=== PATIENT | female | born 1980 | race Caucasian/White ===

== ENCOUNTER 2021-02-15 02:32 | Emergency (ER) | payer OTHER ==
[~2021-02-15] VITALS: Ht 170.2 cm; Wt 104.3 kg
[2021-02-15 02:47] VITALS: BP 149/89
--- NOTE | 2021-02-15 03:53 | NUR ---
PT AMBULATED TO ER BED 01
--- NOTE | 2021-02-15 04:21 | NUR ---
40 yo f bib self with painful bump on chin 07/01. pt states she noticed the bum on monday, squeezed it and ever day since it has gotten worse. chin is hard and warm to touch. redness is around chin and goes down to neck and chest, also warm to touch. pt states she went to urgent care last night and was given doxycycline. pt took ibuprofen and states it helped relieve pain completely. lmp:01/31 denies hx rx and allerg
[2021-02-15] MEDS ORDERED: AMPICILLIN/SULBACTAM 3 GM in NACL 0.9% 100 ML IV ONE (05:05)
[2021-02-15] MEDS ORDERED: ONDANSETRON 4 MG/2 ML VIAL IVP ONE (05:05)
[2021-02-15] MEDS ORDERED: NACL 0.9% 1,000 ML IV ONE (05:05)
[2021-02-15] MEDS ORDERED: MORPHINE SULFATE 4 MG/ML SYR IVP ONE (05:05)
--- NOTE | 2021-02-15 05:20 | NUR ---
labs collectd and sent to lab.
[2021-02-15] MEDS ORDERED: AMPICILLIN/SULBACTAM 3 GM VIAL ONE (05:25)
[2021-02-15 05:42] LABS: BASOPHILS % (AUTO) 0.4 % (0.0-2.0); EOSINOPHILS # (AUTO) 0.2 K/uL (0-0.4); EOSINOPHILS % (AUTO) 2.2 % (0.0-4.0); HEMATOCRIT 41.3 % (36-48); LYMPHOCYTES # (AUTO) 1.1 K/uL (2.5-16.5); LYMPHOCYTES % (AUTO) 13.1 % (20.5-51.1); MEAN CORPUSCULAR HEMOGLOBIN 30 pg (27-31); MEAN CORPUSCULAR HGB CONC 34 g/dL (33-37); MEAN CORPUSCULAR VOLUME 87.7 fL (80-94); MONOCYTES # (AUTO) 0.5 K/uL (0.8-1.0); MONOCYTES % (AUTO) 6.1 % (1.7-9.3); NEUTROPHILS # (AUTO) 6.8 K/uL (1.8-7.7); NEUTROPHILS % (AUTO) 78.2 % (42.2-75.2); PLATELET COUNT (AUTO) 214 K/uL (140-450); RED BLOOD CELL COUNT(AUTO) 4.71 MIL/uL (4.20-5.40); RED CELL DISTRIBUTION WIDTH 14.1 % (11.6-13.7); WHITE BLOOD COUNT (AUTO) 8.8 K/uL (4.8-10.8)
[2021-02-15 06:01] LABS: ALBUMIN 3.7 g/dL (3.4-5.0); CREATININE 0.8 mg/dL (0.6-1.3); TOTAL BILIRUBIN 0.5 mg/dL (0.0-1.0)
[2021-02-15] MEDS ORDERED: POTASSIUM CHL 20MEQ/D5-NS 1,000 ML IV ONE (07:15)
--- NOTE | 2021-02-15 07:18 | NUR ---
report given to demarcus kam. transfer of care at this time.
--- NOTE | 2021-02-15 07:30 | NUR ---
PT C/O CELLULITIS TO CHIN EXTENDING TO NECK WITH REDNESS. AREA HOT TO TOUCH AND PAINFUL. PT ADMITTED FOR IV ANTIBIOTICS. IV TO LEFT AC #20GUAGE INFUSING FLUIDS PER ORDER. TOLERATING WELL. NSR ON MONITOR. NO ACUTE DISTRESS NOTED. SAFETY MAINTAINED.
--- NOTE | 2021-02-15 09:29 | NUR ---
report given to janna tracy at [facility] for continuation of care
--- NOTE | 2021-02-15 09:39 | NUR ---
amr here at bedside repoirt given to medic at bedside. pt stable on tx.
[2021-02-15 09:43] VITALS: BP 127/80
== END 2021-02-15 09:43 | disposition short-term general hospital (02) ==
LOC: MED 02:32
DX: K12.2 Cellulitis and abscess of mouth (principal)
CPT/HCPCS: 36415; 70491; 80053; 84703; 85025; 87040; 87426; 96361; 96365; 96375; 99291; 99292; J0295; J2270; J2405; J7030; Q9967

== ENCOUNTER 2021-04-08 14:40 | Observation (INO) | payer OTHER, SELFPAY ==
[~2021-04-08] VITALS: Ht 170.2 cm; Wt 102.5 kg
[2021-04-08 15:16] VITALS: BP 156/90
--- NOTE | 2021-04-08 15:27 | NUR ---
pt ambulated to bed 08, urine cup at bedside
--- NOTE | 2021-04-08 16:04 | NUR ---
DR JARVIS AT BEDSIDE EVALUATING PT
--- NOTE | 2021-04-08 16:10 | NUR ---
40 Y/O FEMALE C/O RLQ ABDOMINAL PAIN THAT RADIATES TO ENTIRE STOMACH AND BACK XYESTERDAY. PT ALSO C/O DIARRHEA AND A LOT OF GAS X2 DAYS WITH LBM YESTERDAY. PT DENIES BLOOD IN STOOL. ABD IS FLAT, SOFT. AND TENDER ON PALPATION. PT DENIES TAKING ANYTHING FOR PAIN. DENIES DYSURIA/HEMATURIA. PT RATES PAIN 9/10 THAT SHE DESCRIBES STABBING/SHOOTING. PT REPORTS PAIN IS WORSE WITH ANY TYPE OF MOVEMENT. PT A/O X4 WITH EVEN AND UNLABORED RESPIRATIONS. PT PLACED IN GOWN. PMH:DENIES NKDA
--- NOTE | 2021-04-08 16:11 | NUR ---
LAB AT BEDSIDE
[2021-04-08] MEDS ORDERED: NACL 0.9% 1,000 ML IV ONE (16:15)
[2021-04-08] MEDS ORDERED: MORPHINE SULFATE 4 MG/ML SYR IVP ONE ×2 (16:15→19:05)
[2021-04-08] MEDS ORDERED: ONDANSETRON 4 MG/2 ML VIAL IVP ONE (16:15)
[2021-04-08 16:26] LABS: BASOPHILS % (AUTO) 0.5 % (0.0-2.0); EOSINOPHILS # (AUTO) 0.2 K/uL (0-0.4); EOSINOPHILS % (AUTO) 1.7 % (0.0-4.0); HEMATOCRIT 41.8 % (36-48); HEMOGLOBIN 14.2 g/dL (12.0-16.0); LYMPHOCYTES # (AUTO) 0.9 K/uL (2.5-16.5); LYMPHOCYTES % (AUTO) 9.9 % (20.5-51.1); MEAN CORPUSCULAR HEMOGLOBIN 29 pg (27-31); MEAN CORPUSCULAR HGB CONC 34 g/dL (33-37); MEAN CORPUSCULAR VOLUME 84.9 fL (80-94); MONOCYTES # (AUTO) 0.7 K/uL (0.8-1.0); NEUTROPHILS # (AUTO) 7.7 K/uL (1.8-7.7); NEUTROPHILS % (AUTO) 80.9 % (42.2-75.2); PLATELET COUNT (AUTO) 244 K/uL (140-450); RED BLOOD CELL COUNT(AUTO) 4.92 MIL/uL (4.20-5.40); RED CELL DISTRIBUTION WIDTH 14.4 % (11.6-13.7); WHITE BLOOD COUNT (AUTO) 9.5 K/uL (4.8-10.8)
--- NOTE | 2021-04-08 17:14 | NUR ---
Infiltration noted to L AC IV. Pt with pain and swelling to left upper arm. IV discontinued at this time.
[2021-04-08 18:02] LABS: APPEARANCE,URINE CLEAR (CLEAR); BILIRUBIN,URINE NEGATIVE (NEGATIVE); BLOOD, URINE NEGATIVE (NEGATIVE); COLOR,URINE YELLOW (YELLOW); LEUKOCYTE ESTERASE ,URINE NEGATIVE (NEGATIVE); NITRITE, URINE NEGATIVE (NEGATIVE); UGLUCOSE NEGATIVE (NEGATIVE)
[2021-04-08 18:20] LABS: ALBUMIN 3.4 g/dL (3.4-5.0); CREATININE 0.8 mg/dL (0.6-1.3); TOTAL BILIRUBIN 0.8 mg/dL (0.0-1.0)
--- NOTE | 2021-04-08 18:40 | NUR ---
PT TAKEN TO CT VIA W/C
--- NOTE | 2021-04-08 18:53 | NUR ---
Duong kasper in [facility] - 04/08/21 at 1858 by [email or web address] PT BACK FROM CT
--- NOTE | 2021-04-08 18:55 | NUR ---
PT BACK FROM CT. PT IS C/O 12/01 ABDOMINAL PAIN AND REQUESTING PAIN MEDICATION. DR JARVIS MADE AWARE
--- NOTE | 2021-04-08 19:34 | NUR ---
RETURN CALL FROM MILKER MACHINE Serge BERNAL RN. TOLD DR. TINAJERO HAS SURGERY SCHEDULED FOR PATIENT AT 2030
[2021-04-08] MEDS ORDERED: LACTATED RINGERS 1,000 ML IV SCH (19:45)
[2021-04-08] MEDS ORDERED: ONDANSETRON 4 MG/2 ML VIAL IVP PRN ×2 (19:45→20:35)
[2021-04-08] MEDS ORDERED: HYDROcodone/APAP 5/325 MG 1 TAB TAB PO PRN (19:45)
--- NOTE | 2021-04-08 20:29 | NUR ---
DR. TINAJERO AT [facility]
[2021-04-08] MEDS ORDERED: BUPIVACAINE-MPF/EPI 0.25% 30 ML VIAL INJ ONE (20:30)
[2021-04-08] MEDS ORDERED: MIDAZOLAM 2 MG/2 ML VIAL ONE (20:35)
[2021-04-08] MEDS ORDERED: HYDROmorphone 1 MG/ML AMP IVP PRN (20:35)
[2021-04-08] MEDS ORDERED: MEPERIDINE 25 MG/ML SYR IVP PRN (20:35)
[2021-04-08] MEDS: LACTATED RINGERS 1,000 ML IV SCH (20:35)
[2021-04-08] MEDS ORDERED: diphenhydrAMINE 50 MG/ML VIAL IVP PRN (20:35)
[2021-04-08] MEDS ORDERED: PROPOFOL 200 MG/20 ML VIAL IV ONE (20:35)
[2021-04-08] MEDS ORDERED: SUCCINYLCHOLINE CHLORIDE 200 MG/10 ML VIAL IVP ONE (20:35)
[2021-04-08] MEDS ORDERED: fentaNYL citrate 0.05 MG/ML VIAL ONE (20:35)
--- NOTE | 2021-04-08 20:48 | NUR ---
OR TEAM AT BEDSIDE
--- NOTE | 2021-04-08 20:51 | NUR ---
PT TAKEN BY OR TEAM FOR SURGERY. PT WILL GO TO 106B AFTER PROCEDURE
[2021-04-08] MEDS ORDERED: PIPERACILLIN/TAZOBACTAM 3.375 GM VIAL IV ONE (20:55)
--- NOTE | 2021-04-08 20:58 | NUR ---
PT TAKEN TO SURGERY VIA GURNEY WITH THE SURGICAL TEAM. PT WILL GO TO BED 106B AFTER SURGERY
[2021-04-08] MEDS: PIPERACILLIN/TAZOBACTAM 3.375 GM in DEXTROSE 5% 50 ML IV SCH (21:00)
[2021-04-08] MEDS ORDERED: SEVOFLURANE 250 ML BTL INH ONE (21:35)
[2021-04-08] MEDS ORDERED: ROCURONIUM 50 MG/5 ML VIAL IV ONE (21:46)
[2021-04-08] MEDS ORDERED: DEXAMETHASONE 4 MG/ML VIAL ONE (22:07)
[2021-04-08] MEDS ORDERED: ONDANSETRON 4 MG/2 ML VIAL ONE (22:07)
[2021-04-08] MEDS ORDERED: LABETALOL 100 MG/20 ML VIAL ONE (22:11)
[2021-04-08] MEDS ORDERED: SUGAMMADEX SODIUM 200 MG/2 ML VIAL IV ONE (22:17)
[2021-04-08] MEDS ORDERED: MEPERIDINE 50 MG/ML SYR ONE (22:20)
[2021-04-09] VITALS: BP 135/79
--- NOTE | 2021-04-09 | NUR ---
ADMITTED FROM OR FOR S/P LAPAROSCOPIC APPENDECTOMY WITH CHIEF COMPLAINT OF RLQ ABDOMINAL PAIN THAT STARTED ON 04/07/21 APPROXIMATELY 1430. PATIENT IS CURRENTLY ASLEEP. INFORMATION IS PROVIDED BY MOTHER AT BEDSIDE. VITAL SIGNS TAKEN AND WITHIN NORMAL LIMITS. CHEST IS RISING AND FALLING. RESPIRATIONS EVEN AND UNLABORED. NO APPARENT S/SX OF ACUTE DISTRESS. HEAD TO TOE ASSESSMENT COMPLETED WITH CHARGE NURSE DESIRE. ADMISSION HISTORY PROVIDED BY MOTHER. WILL VERIFY INFORMATION WITH PATIENT WHEN SHE WAKES UP. PICTURES TAKEN FOR SURGICAL WOUND SITES AND DOCUMENTED. EDUCATED MOTHER PROMOTIONS EXECUTIVE PRODUCER LIGHT, BED CONTROLS, TELEVISION, BATHROOM, VISITING HOURS. ID BRACELET IS ON. BELONGINGS ON BEDSIDE. MOTHER STATED THAT SHE WILL BE LEAVING SHORTLY. WHITE COMMUNICATION BOARD UPDATED. ALL SAFETY MEASURES IN PLACE. CALL LIGHT WITHIN REACH. WILL CONTINUE TO MONITOR.
[2021-04-09] MEDS: MORPHINE SULFATE 4 MG/ML SYR IVP PRN ×4 (00:14→21:37)
--- NOTE | 2021-04-09 00:15 | NUR ---
PATIENT WOKE UP AND C/O 8/10 PAIN ON LOWER ABDOMEN. WILL ENDORSE TO RN DESIRE FOR PRN IVP.
--- NOTE | 2021-04-09 00:30 | NUR ---
PATIENT REQUESTED FOR SOMETHING TO EAT. WILL RETURN WITH REQUESTED ITEMS.
--- NOTE | 2021-04-09 01:00 | NUR ---
Patient's Plan of Care was discussed and reviewed with TRADE SHOW MANAGER: ADWOA OLIVER
--- NOTE | 2021-04-09 02:30 | NUR ---
CHECKED PATIENT. STABLE AND ASLEEP. CHEST IS RISING AND FALLING SYMMETRICALLY. RESPIRATIONS EVEN AND UNLABORED. NO APPARENT S/SX OF ACUTE DISTRESS. WHITE COMMUNICATION BOARD UPDATED. ALL SAFETY MEASURES IN PLACE. CALL LIGHT WITHIN REACH. WILL CONTINUE TO MONITOR.
[2021-04-09 04:00] VITALS: BP 129/81
[2021-04-09] MEDS: LACTATED RINGERS 1,000 ML IV SCH ×3 (04:17→21:46)
--- NOTE | 2021-04-09 04:30 | NUR ---
ROUNDED ON PATIENT. STABLE AND ASLEEP. CHEST IS RISING AND FALLING SYMMETRICALLY. RESPIRATIONS EVEN AND UNLABORED. NO APPARENT S/SX OF ACUTE DISTRESS. WHITE COMMUNICATION BOARD UPDATED. ALL SAFETY MEASURES IN PLACE. CALL LIGHT WITHIN REACH. WILL CONTINUE TO MONITOR.
[2021-04-09] MEDS ORDERED: PIPERACILLIN/TAZOBACTAM 3.375 GM VIAL IV ONE (04:56)
[2021-04-09] MEDS: PIPERACILLIN/TAZOBACTAM 3.375 GM in DEXTROSE 5% 50 ML IV SCH ×3 (05:04→21:37)
--- NOTE | 2021-04-09 05:45 | NUR ---
PATIENT HAS NOT VOIDED SINCE OR PROCEDURE. BLADDER SCAN SHOWS URINE OF 400ML. WILL RECHECK IN 30 MINS. PATIENT IS ALSO C/O 8/10 LOWER ABDOMINAL PAIN. WILL ENDORSE TO RN DESIRE REGARDING PRN MORPHINE SULFATE PER MD ORDER.
--- NOTE | 2021-04-09 06:10 | NUR ---
ASSISTED PATIENT TO THE BATHROOM. PATIENT REPORTED SHE WAS ABLE TO VOID.
[2021-04-09 06:55] LABS: BASOPHILS % (AUTO) 0.1 % (0.0-2.0); HEMATOCRIT 38.3 % (36-48); HEMOGLOBIN 13.1 g/dL (12.0-16.0); LYMPHOCYTES # (AUTO) 0.3 K/uL (2.5-16.5); LYMPHOCYTES % (AUTO) 4.4 % (20.5-51.1); MEAN CORPUSCULAR HEMOGLOBIN 29 pg (27-31); MEAN CORPUSCULAR HGB CONC 34 g/dL (33-37); MEAN CORPUSCULAR VOLUME 85.3 fL (80-94); MONOCYTES # (AUTO) 0.1 K/uL (0.8-1.0); MONOCYTES % (AUTO) 1.5 % (1.7-9.3); NEUTROPHILS # (AUTO) 6.7 K/uL (1.8-7.7); PLATELET COUNT (AUTO) 207 K/uL (140-450); RED BLOOD CELL COUNT(AUTO) 4.49 MIL/uL (4.20-5.40); RED CELL DISTRIBUTION WIDTH 14.4 % (11.6-13.7); WHITE BLOOD COUNT (AUTO) 7.1 K/uL (4.8-10.8)
[2021-04-09 07:01] LABS: CARBON DIOXIDE 25.4 mmol/L (21-32); CREATININE 0.8 mg/dL (0.6-1.3); POTASSIUM 4.4 mmol/L (3.5-5.1)
--- NOTE | 2021-04-09 07:26 | NUR ---
ENDORSED PATIENT TO MORNING SHIFT NURSE FOR CONTINUITY OF CARE. PATIENT IS STABLE.
--- NOTE | 2021-04-09 07:40 | NUR ---
RECEIVED PATIENT FROM LIGHT RAIL TRAIN OPERATOR NURSE FOR CONTINUITY OF CARE. PT IS AOX4, ABLE TO MAKE NEEDS KNOWN. RESPIRATIONS EVEN AND UNLABORED. ON ROOM AIR AND NO DISTRESS NOTED. SKIN IS WARM, DRY, AND NON-INTACT. S/P LAPAROSCOPIC APPENDECTOMY. 3 SURGICAL INCISIONS NOTED. NO DRAINAGE NOTED. IV SITE ON RH 22G INTACT AND PATENT. DENIES PAIN AT THE MOMENT. PLAN OF CARE DISCUSSED SAFETY PRECAUTIONS IN PLACE. CALL LIGHT WITHIN REACH. WILL CONTINUE TO MONITOR.
[2021-04-09 08:00] VITALS: BP 122/72
[2021-04-09] MEDS: ENOXAPARIN 40 MG/0.4 ML SYR SUBQ SCH (08:51)
--- NOTE | 2021-04-09 09:10 | NUR ---
ALL SCHEDULED MEDS GIVEN. PT IS STABLE. NO DISTRESS NOTED. WILL CONTINUE TO MONITOR.
--- NOTE | 2021-04-09 09:10 | NUR ---
PATIENT HAS BEEN SCREENED AND CATEGORIZED MODERATE NUTRITION RISK. PATIENT WILL BE SEEN WITHIN 3-5 DAYS OF ADMISSION. 04/09/21 04/13/[address]
--- NOTE | 2021-04-09 11:52 | NUR ---
CHECKED ON PATIENT. PT IS STABLE. NO DISTRESS NOTED. WILL CONTINUE TO MONITOR.
--- NOTE | 2021-04-09 12:41 | NUR ---
PT COMPLAINED OF ABD PAIN 01/01. ADMINISTERED PRN PAIN MEDS PER MD ORDERED.
--- NOTE | 2021-04-09 15:09 | NUR ---
CHECKED ON PATIENT. PATIENT IS ASLEEP. NOTED CHEST RISE AND FALL. WILL CONTINUE TO MONITOR.
[2021-04-09 16:00] VITALS: BP 144/79
--- NOTE | 2021-04-09 17:40 | NUR ---
CHECKED ON PATIENT. PATIENT IS ASLEEP. NOTED CHEST RISE AND FALL. WILL CONTINUE TO MONITOR.
--- NOTE | 2021-04-09 19:12 | NUR ---
ENDORSED TO ARTIST AGENT NURSE FOR CONTINUITY OF CARE. PT IS STABLE.
--- NOTE | 2021-04-09 19:13 | NUR ---
RECEIVED REPORT FROM MORNING SHIFT FOR CONTINUITY OF CARE. PATIENT IS STABLE IN BED. A&OX4. VERBALLY RESPONSIVE AND ABLE TO COMMUNICATE NEEDS. PATIENT STATES TOLERABLE PAIN. POSSIBLE DISCHARGE IF PATIENT CAN TOLERATE PAIN. BREATHING EVEN AND UNLABORED. ON ROOM AIR WITH NO S/SX OF ACUTE DISTRESS. IV SITE TO THE RIGHT FOREARM 22G IS INTACT, PATENT, AND ASYMPTOMATIC WITH IVF INFUSING. STERI STRIPS ON ABDOMINAL INCISIONS ARE PRESENT. PATIENT IS AMBULATORY AND CONTINENT. PLAN OF CARE AND WHITE COMMUNICATION BOARD UPDATED. BED IN LOW/LOCKED POSITION. CALL LIGHT WITHIN REACH. PATIENT ENCOURAGED TO CALL FOR ANY NEEDS/ASSISTANCE. WILL CONTINUE TO MONITOR.
--- NOTE | 2021-04-09 20:00 | NUR ---
Patient's Plan of Care was discussed and reviewed with PRODUCT DEVELOPMENT CONSULTANT: ADWOA OLIVER
--- NOTE | 2021-04-09 21:10 | NUR ---
ANSWERED CALL LIGHT. ASSISTED PATIENT TO THE BATHROOM. PATIENT STATED SHE VOIDED AND PASSED GAS. ASSISTED PATIENT BACK TO BED. ADMINISTERED NEW IVF. IV LINE IS INTACT, PATENT, ASYMPTOMATIC AND INFUSING AT 120 ML/HOUR. PATIENT IS C/O 8/10 LOWER ABDOMINAL PAIN. WILL ENDORSE TO DHARMESH LUI FOR PRN IVP PER MD ORDER. WHITE COMMUNICATION BOARD UPDATED. ALL SAFETY MEASURES IN PLACE. CALL LIGHT WITHIN REACH. WILL CONTINUE TO MONITOR.
--- NOTE | 2021-04-10 00:30 | NUR ---
PATIENT IS REQUESTING FOR SOME SNACKS. WILL RETRIEVE REQUESTED ITEMS. PATIENT VERBALIZES MINOR AND TOLERABLE PAIN IN LOWER ABDOMINAL AREA. RESPIRATIONS EVEN AND UNLABORED. NO APPARENT S/SX OF ACUTE DISTRESS. ALL SAFETY MEASURES IN PLACE. CALL LIGHT WITHIN REACH. WILL CONTINUE TO MONITOR.
--- NOTE | 2021-04-10 02:30 | NUR ---
CHECKED PATIENT. STABLE AND ASLEEP. CHEST IS RISING AND FALLING. RESPIRATIONS EVEN AND UNLABORED. NO APPARENT S/SX OF ACUTE DISTRESS. WHITE COMMUNICATION BOARD UPDATED. ALL SAFETY MEASURES IN PLACE. CALL LIGHT WITHIN REACH. WILL CONTINUE TO MONITOR.
[2021-04-10 04:00] VITALS: BP 143/85
[2021-04-10] MEDS: PIPERACILLIN/TAZOBACTAM 3.375 GM in DEXTROSE 5% 50 ML IV SCH (04:30)
--- NOTE | 2021-04-10 04:30 | NUR ---
ROUNDED ON PATIENT. STABLE AND ASLEEP. CHEST IS RISING AND FALLING. RESPIRATIONS EVEN AND UNLABORED. NO APPARENT S/SX OF ACUTE DISTRESS. WHITE COMMUNICATION BOARD UPDATED. ALL SAFETY MEASURES IN PLACE. CALL LIGHT WITHIN REACH. WILL CONTINUE TO MONITOR.
[2021-04-10] MEDS: LACTATED RINGERS 1,000 ML IV SCH (05:55)
--- NOTE | 2021-04-10 06:20 | NUR ---
CHECKED PATIENT. IVF BAG ALMOST EMPTY. WILL PREPARE A NEW BAG ON HAND. PATIENT IS STABLE AND ASLEEP. CHEST IS RISING AND FALLING. RESPIRATIONS EVEN AND UNLABORED. NO APPARENT S/SX OF ACUTE DISTRESS. WHITE COMMUNICATION BOARD UPDATED. ALL SAFETY MEASURES IN PLACE. CALL LIGHT WITHIN REACH. WILL CONTINUE TO MONITOR.
--- NOTE | 2021-04-10 07:35 | NUR ---
ENDORSED PATIENT TO MORNING SHIFT FOR CONTINUITY OF CARE. PATIENT IS STABLE.
[2021-04-10] MEDS: MORPHINE SULFATE 4 MG/ML SYR IVP PRN (08:47)
[2021-04-10] MEDS: ENOXAPARIN 40 MG/0.4 ML SYR SUBQ SCH (08:48)
--- NOTE | 2021-04-10 08:49 | NUR ---
SCHEDULED MEDICATIONS DUE GIVEN. COMPLAINS OF PAIN, MORPHINE GIVEN AT THIS TIME. WILL CONTINUE TO MONITOR.
[2021-04-10] MEDS ORDERED: traMADol 50 MG TAB PO PRN (10:00)
[2021-04-10] MEDS ORDERED: MORPHINE SULFATE 4 MG/ML SYR IVP PRN (10:00)
[2021-04-10] MEDS ORDERED: TRAM50TA1 PO (10:15)
--- NOTE | 2021-04-10 11:30 | NUR ---
DISCHARGE INSTRUCTIONS PROVIDED TO PATIENT IN PREFERRED LANGUAGE OF AZERI. INSTRUCTIONS ON FOLLOW-UP WITH PCP, AND SURGEON DR. TINAJERO, NEW/CHANGED MEDICATION REGIMEN, AND NO HEAVY LIFTING AND EXCESSIVE BENDING FOR 2 WEEKS. ANSWERED ALL OF PATIENT'S QUESTIONS REGARDING DISCHARGE. IV SITE REMOVED WITH MINIMAL BLOOD AND LUMEN COMPLETELY INTACT. AWAITING FOR PATIENT'S FAMILY MEMBER TO TAKE PATIENT HOME. WILL CONTINUE TO MONITOR.
--- NOTE | 2021-04-10 12:35 | NUR ---
PATIENT'S FAMILY MEMBER AT [facility]. ESCORTED PATIENT DOWN VIA WHEELCHAIR. PATIENT DISCHARGED AT THIS TIME IN STABLE CONDITION.
== END 2021-04-10 12:35 | disposition home or self-care (01) ==
LOC: MED 14:40 → MMU 19:50 → INTOOBSV 19:50 → MTU 20:46
PROVIDERS: ADMIT Internal Medicine; ATTEND Internal Medicine
DX: K35.80 Unspecified acute appendicitis (principal); Z20.822 Contact with and (suspected) exposure to COVID-19; E66.9 Obesity, unspecified; K42.9 Umbilical hernia without obstruction or gangrene; K81.9 Cholecystitis, unspecified; Z68.35 Body mass index [BMI] 35.0-35.9, adult
CPT/HCPCS: 36415; 44970; 74177; 80048; 80053; 81003; 81025; 83690; 84703; 85025; 87070; 87075; 87081; 87186; 87205; 87426; 88304; 96361; 96365; 96366; 96372; 96375; 96376; 99285; G0378; J0330; J1100; J1650; J2175; J2250; J2270; J2405; J2543; J2704; J3010; J3490; J7060; J7120; Q9967

== ENCOUNTER 2022-04-01 01:59 | Emergency (ER) | payer OTHER ==
[~2022-04-01] VITALS: Ht 170.2 cm; Wt 108.9 kg
[~2022-04-01 01:59] MED LIST: TRAM-748 PO
[2022-04-01 02:05] VITALS: BP 165/90
--- NOTE | 2022-04-01 02:08 | NUR ---
TO BED AMBULATORY
--- NOTE | 2022-04-01 02:11 | NUR ---
RECEIVED IN BED 2 WITH C/O RASH OVER ENTIRE BODY X 2 DAYS
--- NOTE | 2022-04-01 02:22 | NUR ---
DR HALL AT BEDSIDE FOR EXAM
[2022-04-01 02:57] LABS: BASOPHILS # (AUTO) 0.1 K/uL (0.00-0.22); BASOPHILS % (AUTO) 0.9 % (0.0-2.0); EOSINOPHILS # (AUTO) 0.3 K/uL (0-0.4); EOSINOPHILS % (AUTO) 3.8 % (0.0-4.0); HEMATOCRIT 41.1 % (36-48); HEMOGLOBIN 14.2 g/dL (12.0-16.0); LYMPHOCYTES # (AUTO) 1.5 K/uL (2.5-16.5); LYMPHOCYTES % (AUTO) 21.5 % (20.5-51.1); MEAN CORPUSCULAR HEMOGLOBIN 30 pg (27-31); MEAN CORPUSCULAR HGB CONC 35 g/dL (33-37); MEAN CORPUSCULAR VOLUME 86.9 fL (80-94); MONOCYTES # (AUTO) 0.6 K/uL (0.8-1.0); MONOCYTES % (AUTO) 8.3 % (1.7-9.3); NEUTROPHILS # (AUTO) 4.7 K/uL (1.8-7.7); NEUTROPHILS % (AUTO) 65.5 % (42.2-75.2); PLATELET COUNT (AUTO) 235 K/uL (140-450); RED BLOOD CELL COUNT(AUTO) 4.73 MIL/uL (4.20-5.40); RED CELL DISTRIBUTION WIDTH 14.1 % (11.6-13.7); WHITE BLOOD COUNT (AUTO) 7.2 K/uL (4.8-10.8)
[2022-04-01 03:13] LABS: ANION GAP 5.3 (8-16); CARBON DIOXIDE 30.7 mmol/L (21-32); CREATININE 0.8 mg/dL (0.6-1.3)
[2022-04-01 03:16] LABS: PROTHROMBIN TIME 9.4 secs (10.8-13.4)
[2022-04-01] MEDS ORDERED: PRED20TA5 PO (03:33)
== END 2022-04-01 04:30 | disposition home or self-care (01) ==
LOC: MED 01:59
DX: R21 Rash and other nonspecific skin eruption (principal); Z72.89 Other problems related to lifestyle
CPT/HCPCS: 36415; 80048; 85025; 85610; 85730; 99283

== ENCOUNTER 2023-01-15 12:04 | Inpatient (IN) | payer OTHER ==
[~2023-01-15] VITALS: Ht 170.2 cm; Wt 113.4 kg
[~2023-01-15 12:04] MED LIST changes: +PRED20TA5 PO
[2023-01-15 12:16] VITALS: BP 157/91; PULSE 101; RESP 20; TEMP 98.9; O2SAT 98
[2023-01-15 13:26] LABS: BASOPHILS # (AUTO) 0.1 K/uL (0.00-0.22); BASOPHILS % (AUTO) 0.6 % (0.0-2.0); EOSINOPHILS # (AUTO) 0.2 K/uL (0-0.4); EOSINOPHILS % (AUTO) 2.2 % (0.0-4.0); HEMATOCRIT 39.2 % (36-48); HEMOGLOBIN 13.4 g/dL (12.0-16.0); LYMPHOCYTES # (AUTO) 1.8 K/uL (2.5-16.5); LYMPHOCYTES % (AUTO) 18.4 % (20.5-51.1); MEAN CORPUSCULAR HEMOGLOBIN 29 pg (27-31); MEAN CORPUSCULAR HGB CONC 34 g/dL (33-37); MEAN CORPUSCULAR VOLUME 84.6 fL (80-94); MONOCYTES # (AUTO) 0.6 K/uL (0.8-1.0); MONOCYTES % (AUTO) 6.6 % (1.7-9.3); NEUTROPHILS % (AUTO) 72.2 % (42.2-75.2); PLATELET COUNT (AUTO) 234 K/uL (140-450); RED BLOOD CELL COUNT(AUTO) 4.64 MIL/uL (4.20-5.40); RED CELL DISTRIBUTION WIDTH 14.9 % (11.6-13.7); WHITE BLOOD COUNT (AUTO) 9.8 K/uL (4.8-10.8)
[2023-01-15 13:43] LABS: ALBUMIN 3.3 g/dL (3.4-5.0); ANION GAP 12.9 (8-16); CALCIUM 9.2 mg/dL (8.5-10.1); CARBON DIOXIDE 24.6 mmol/L (21-32); POTASSIUM 3.5 mmol/L (3.5-5.1); TOTAL BILIRUBIN 0.5 mg/dL (0.0-1.0); TOTAL PROTEIN, SERUM 6.6 g/dL (6.4-8.2)
[2023-01-15] MEDS ORDERED: HYDROcodone/APAP 10/325 MG 1 TAB TAB PO ONE (14:50)
[2023-01-15] MEDS ORDERED: NACL 0.9% 1,000 ML IV ONE (15:15)
[2023-01-15] MEDS: MORPHINE SULFATE 4 MG/ML SYR IVP PRN (15:34)
[2023-01-15] MEDS ORDERED: LORazepam 2 MG/ML VIAL IVP PRN (16:30)
[2023-01-15] MEDS ORDERED: POTASSIUM CHLORIDE 10 MEQ TABER PO PRN (16:30)
[2023-01-15] MEDS ORDERED: DOCUSATE SODIUM 100 MG GELCAP PO PRN (16:30)
[2023-01-15] MEDS ORDERED: ONDANSETRON 4 MG/2 ML VIAL IVP PRN (16:30)
[2023-01-15] MEDS ORDERED: MAG SULF 2000 MG/WATER PREMIX 50 ML IV PRN (16:30)
[2023-01-15] MEDS ORDERED: ZOLPIDEM 10 MG TAB PO PRN (16:30)
[2023-01-15] MEDS ORDERED: ACETAMINOPHEN 325 MG TAB PO PRN (16:30)
[2023-01-15] MEDS ORDERED: MORPHINE SULFATE 2 MG/ML SYR IVP PRN (16:30)
[2023-01-15 20:15] VITALS: BP 147/85; PULSE 79; RESP 18; TEMP 98.3; O2SAT 96
[2023-01-15] MEDS: NACL 0.9% 1,000 ML IV SCH (21:46)
[2023-01-16] MEDS: NACL 0.9% 1,000 ML IV SCH (02:25)
[2023-01-16] MEDS: MORPHINE SULFATE 4 MG/ML SYR IVP PRN (05:11)
[2023-01-16 06:07] LABS: CALCIUM 8.2 mg/dL (8.5-10.1); CARBON DIOXIDE 24.9 mmol/L (21-32); CREATININE 0.7 mg/dL (0.6-1.3); POTASSIUM 3.9 mmol/L (3.5-5.1)
[2023-01-16 06:24] LABS: BASOPHILS % (AUTO) 0.5 % (0.0-2.0); EOSINOPHILS # (AUTO) 0.2 K/uL (0-0.4); EOSINOPHILS % (AUTO) 3.7 % (0.0-4.0); HEMATOCRIT 37.3 % (36-48); HEMOGLOBIN 12.8 g/dL (12.0-16.0); LYMPHOCYTES # (AUTO) 1.8 K/uL (2.5-16.5); LYMPHOCYTES % (AUTO) 28.8 % (20.5-51.1); MEAN CORPUSCULAR HEMOGLOBIN 30 pg (27-31); MEAN CORPUSCULAR HGB CONC 34 g/dL (33-37); MEAN CORPUSCULAR VOLUME 86.4 fL (80-94); MONOCYTES # (AUTO) 0.4 K/uL (0.8-1.0); MONOCYTES % (AUTO) 6.1 % (1.7-9.3); NEUTROPHILS # (AUTO) 3.8 K/uL (1.8-7.7); NEUTROPHILS % (AUTO) 60.9 % (42.2-75.2); PLATELET COUNT (AUTO) 210 K/uL (140-450); RED BLOOD CELL COUNT(AUTO) 4.32 MIL/uL (4.20-5.40); RED CELL DISTRIBUTION WIDTH 14.7 % (11.6-13.7); WHITE BLOOD COUNT (AUTO) 6.2 K/uL (4.8-10.8)
[2023-01-16 08:00] VITALS: BP 148/89; PULSE 66; RESP 18; TEMP 98.4; O2SAT 96
== END 2023-01-16 11:45 | disposition left against medical advice (07) | DRG 254 ==
LOC: MED 12:04 → MMU 16:26 → MTU 17:58
PROVIDERS: ADMIT Family Medicine; ATTEND Family Medicine
DX: K43.6 Other and unspecified ventral hernia with obstruction, without gangrene (principal); E44.1 Mild protein-calorie malnutrition; E66.01 Morbid (severe) obesity due to excess calories; K80.20 Calculus of gallbladder without cholecystitis without obstruction; N83.202 Unspecified ovarian cyst, left side; Z53.29 Procedure and treatment not carried out because of patient's decision for other reasons; Z90.49 Acquired absence of other specified parts of digestive tract; Z68.39 Body mass index [BMI] 39.0-39.9, adult
CPT/HCPCS: 36415; 71045; 80048; 80053; 83690; 83735; 85025; 86900; 86901; 87081; 96374; 99285; J2270; Q0092; Q9967